=== PATIENT | female | born 1975 | race Caucasian/White ===

== ENCOUNTER 2018-08-30 11:01 | Emergency (ER) | payer MEDICAID ==
[~2018-08-30] VITALS: Ht 160 cm; Wt 68.2 kg
[2018-08-30 11:29] VITALS: BP 116/71; PULSE 86; RESP 18; Ht 160 cm; Wt 68.2 kg
[2018-08-30] MEDS ORDERED: ONDANSETRON (ODT) 4 MG TAB ODT STA (13:29)
[2018-08-30] MEDS ORDERED: KETOROLAC 60 MG INJ IM STA (13:29)
[2018-08-30] MEDS ORDERED: IBUP-1542 PO (15:16)
[2018-08-30] MEDS ORDERED: BENZ1LOZ52 MM (15:17)
--- NOTE | 2018-08-30 15:23 | ERD ---
ER Documentation Chief Complaint Chief Complaint RIGHT ARM PAIN X 3 WEEKS HPI 42-year-old female patient with no significant past medical history presents ED complaining of right elbow pain that started intermittently for the last 3 weeks. Patient reports that she is able to swallow liquids/solids without any difficulty. States that she also has a sore throat that started 1 week ago. Patient also reports that she has a frontal headache that started about 2 days ago, gradual onset. States that she has not taking any medications. Denies any head or neck injuries. Denies any cough, rhinorrhea, chest pain, shortness of breath, nausea, vomiting, diarrhea, neck stiffness. ROS All systems reviewed and are negative except as per history of present illness. Medications Home Meds Active Scripts Benzocaine/Menthol* (Cepacol* Sore Throat Lozenges) 1 Each Lozenge, 1 EACH MM q2h PRN for SORE THROAT, #20 LOZENGE Prov:ELOY OLGUIN-Kaylie 08/30/18 Ibuprofen* (Motrin*) 600 Mg Tab, 600 MG PO Q6, #30 TAB Prov:ELOY OLGUIN PA-C 08/30/18 Allergies Allergies: Coded Allergies: Penicillins (Verified Allergy, Unknown, rashes, 08/30/18) PMhx/Soc Hx Alcohol Use: No Hx Tobacco Use: No Smoking Status: Never smoker FmHx Family History: No diabetes, No coronary disease Physical Exam Vitals Vital Signs Date Temp Pulse Resp B/P (MAP) Pulse Ox O2 O2 Flow FiO2 Time Delivery Rate 08/30/18 98.7 86 18 116/71 99 11:29 (86) Physical Exam Const: Ity-abu-ybcdufvmz, well-nourished. In no acute distress. Head: Atraumatic, normocephalic Eyes: Normal Conjunctiva without injection. No purulent discharge. PERRL. EOMI ENT: Normal external ear. Ear canal without erythema. Tympanic membrane pearly g ray without effusion or bulging. Nasal canal clear with normal turbinates. Moist oropharynx without tonsillar exudates. Non-erythematous pharynx. Uvula midline. No drooling. No trismus. Neck: Full range of motion. No meningismus. No cervical lymphadenopathy. Resp: Clear to auscultation bilaterally. No wheezing, rhonchi, rales, or crackles. No accessory muscle use. No retractions. Cardio: Regular rate and rhythm. No murmurs, rubs or gallops. Abd: Soft, non tender, non distended. Normal bowel sounds. No palpable masses. No rebound tenderness. No guarding. Skin: No petechiae or rashes Back: No midline tenderness. No CVA tenderness. Ext: No cyanosis, or edema. Tender palpation of the right lateral aspect of patient's elbow. Full range of motion with supination, pronation, internal and external rotation. Neur: Awake and alert. Psych: Normal Mood and Affect Results 24 hrs Laboratory Tests Test 08/30/18 14:08 POC Beta HCG, Qualitative NEGATIVE Current Medications Medications Dose Sig/Raymond Start Time Status Last (Trade) Ordered Route PRN Stop Time Admin Dose Reason Admin Ketorolac 60 mg ONCE STAT 08/30/18 DC 08/30/18 Tromethamine IM 13:29 14:19 (Toradol) 08/30/18 13:32 Ondansetron 4 mg ONCE STAT 08/30/18 DC 08/30/18 HCl (Zofran ODT 13:29 13:55 Odt) 08/30/18 13:32 Procedures/MDM 42-year-old female patient with no significant hospital history presents ED complaining of right elbow pain. Patient is afebrile and nontoxic-appearing. Patient given Toradol 60 mg IM with improvement of her symptoms. Patient likely has a viral pharyngitis. No indication for antibiotics at this time as there is no exudates, erythema. Patient is able to swallow liquids and solids without any difficulty. Patient's physical exam include lungs which were clear to auscultation and a normal pulse oximetry. Bilateral ears pearly hernández. No tenderness to palpation of tragus or mastoid. Low suspicion for mastoiditis, otitis externa, otitis media. Patient is speaking in full sentences. There is a low suspicion for pneumonia, epiglottitis, croup, sinusitis, peritonsillar abscess, hands foot mouth disease, scarlet fever, Kawasaki disease, Aristides's angina, retropharyngeal abscess, meningitis, sepsis, acute abdomen or other emergent conditions. IMPRESSION: Unremarkable examination. Patient is neurovascularly intact. She has full range of motion of her right elbow. Differentials include tendinitis. Patient's extremity symptoms have stabilized while they have been evaluated in the department and are appropriate for outpatient follow up. No evidence of fractures, dislocations, compartment syndrome, neurologic injury, vascular injury, open joint, open fracture, tendon laceration, septic arthritis, osteomyelitis, DVT, foreign body, or other emergent conditions. Diagnosis: Right elbow pain, sore throat Discharge medications: Ibuprofen, Cepacol throat lozenges Follow up with primary care physician in 1-2 days. Instructed patient to return to the ED sooner for any worsening symptoms. Patient's questions were answered. Patient is hemodynamically stable. Patient understood and agreed with discharge plan. Patient discharged stable. Disclaimer: Inadvertent spelling and grammatical errors are likely due to EHR/dictation software use and do not reflect on the overall quality of patient care. Also, please note that the electronic time recorded on this note does not necessarily reflect the actual time of the patient encounter. Departure Diagnosis: Primary Impression: Elbow pain, right Additional Impression: Sore throat Condition: Stable Patient Instructions: When You Have a Sore Throat, Self-Care for Sore Throats, Sprain Elbow Referrals: [facility] Usted se lubin hecho un examen mdico de control que le indica que no est en cisco condicin que requiera tratamiento urgente en el Departamento de Emergencia. Un estudio ms profundo y el tratamiento de holguin condicin pueden esperar sin ningn riesgo hasta que usted sea atendida/o en el consultorio de holguin mdico o cisco clnica. Es responsabilidad suya arreglar cisco librado para el seguimiento del pablo. MANEJO DE CONDICIONES NO URGENTES EN EL FUTURO 1) Si usted tiene un mdico de atencin primaria: Usted debera llamar a holguin mdico de atencin primaria antes de venir al departamento de emergencia. Despus de las horas de consultorio, holguin doctor o holguin asociado/a est disponible por telfono. El mdico o enfermero de ramesh en el servicio telefnico puede asesorarle por isa medio para atender el problema, o pablo contrario se puede programar cisco librado. 2) Si usted no tiene un mdico de atencin primaria: Llame al mdico o clnica de referencia que aparece abajo abbi las horas de consultorio para hacer cisco librado para que le vean. CLINICAS: [facility] [id number] [facility] [phone] [facility] [phone] [place] [id number] [phone] [place] [id number] [phone] [facility] [phone] [address] [facility]. [facility] () Usted se lubin hecho un examen mdico de control que le indica que no est en cisco condicin que requiera tratamiento urgente en el Departamento de Emergencia. Un estudio ms profundo y el tratamiento de holguin condicin pueden esperar sin ningn riesgo hasta que usted sea atendida/o en el consultorio de holguin mdico o cisco clnica. Es responsabilidad suya arreglar cisco librado para el seguimiento del pablo. MANEJO DE CONDICIONES NO URGENTES EN EL FUTURO 1) Si usted tiene un mdico de atencin primaria: Usted debera llamar a holguin mdico de atencin primaria antes de venir al departamento de emergencia. Despus de las horas de consultorio, holguin doctor o holguin asociado/a est disponible por telfono. El mdico o enfermero de ramesh en el servicio telefnico puede asesorarle por isa medio para atender el problema, o pablo contrario se puede programar cisco librado. 2) Si usted no tiene un mdico de atencin primaria: Llame al mdico o condado institucions de referencia que aparece abajo abbi las horas de consultorio para hacer cisco librado para que le vean. SI USTED NO PUEDE PAGAR PARA BROOKS UN MEDICO puede ir a: [facility] [id number] [employer] [place] [address] [facility] [address] [place] [address] [facility] [address] [place] [address] [facility] [address] [place] [address] [facility] Urgent Care 7 a.m.- 11 p.m. Every Day of the Week NO APPOINTMENT OR AUTHORIZATION NEEDED [facility] Hours: Mon-Fri 9:00 AM - 5:00 PM Additional Instructions: Llame al doctor MAANA y joey cisco LIBRADO PARA DENTRO DE 2-3 GEORGE.Dgale a la secretaria que nosotros le instruimos hacer esta librado.Avise o llame si holguin condicin se empeora antes de la librado. Regresa aqui si peor o no mejor. ELOY OLGUIN PA-C Aug 30, 2018 15:23
== END 2018-08-30 15:32 | disposition home or self-care (01) ==
LOC: FTE 11:01
DX: M25.521 Pain in right elbow (principal); J02.9 Acute pharyngitis, unspecified
CPT/HCPCS: 73080; 81025; J1885; Z7610; 96372